=== PATIENT | male | born 1995 | race Caucasian/White ===

== ENCOUNTER 2023-10-26 14:43 | Emergency (ER) | payer OTHER, SELFPAY ==
[2023-10-26] VITALS (7 sets, daily range): BP systolic 105–118; BP diastolic 56–75; PULSE 55–90; RESP 16; TEMP 37.1; O2SAT 97–100; BMI 17.6
[2023-10-26 15:12] LABS: Add Manual Diff / Slide Review NO; Basophils Absolute Auto 100 /uL (0-100); Basophils Percent Auto 0.8 % (0-2); Eosinophils Absolute Auto 200 /uL (0-450); Eosinophils Percent Auto 2.2 % (2-4); Hematocrit 42.4 % (41-53); Hemoglobin 14.5 g/dL (13.5-17.5); Lymphocytes Absolute Auto 2500 /uL (1100-4500); Lymphocytes Percent Auto 32.4 % (25-40); Mean Corpuscular HGB Conc 34.2 % (30-36); Mean Corpuscular Hemoglobin 31.7 PG (26-34); Mean Corpuscular Volume 92.6 fL (80-100); Monocytes Absolute Auto 500 /uL (0-900); Monocytes Percent Auto 6.5 % (3-14); Neutrophils Absolute Auto 4400 /uL (1500-7000); Neutrophils Percent Auto 58.1 % (50-75); Platelet Count 191 X10^3/uL (150-400); Red Blood Cell Count 4.58 X10^6/uL (4.5-5.9); Red Cell Distribution Width 13.5 % (11.6-14.8); White Blood Cell Count 7.7 X10^3/uL (4.5-11.0)
[2023-10-26 15:24] LABS: Alanine Aminotransferase 16 IU/L (<50); Albumin 4.3 g/dL (3.5-5.0); Albumin Globulin Ratio 1.6 (1.0-2.8); Alkaline Phosphatase 62 U/L (38-126); Aspartate Aminotransferase 29 IU/L (17-59); BUN Creatinine Ratio 14.1 (6-22); Bilirubin Total 0.7 mg/dL (0.2-1.3); Blood Urea Nitrogen 12 mg/dL (9-20); Calcium 9.1 mg/dL (8.4-10.2); Carbon Dioxide 24 mmol/L (22-32); Chloride 106 mmol/L (98-107); Estimated Glomerular Filt Rate > 60 mL/min (>60); Globulin 2.7 g/dL (1.7-4.1); Glucose 109 mg/dL (70-100); HEMOLYSIS < 15 (0-50); Lipase 34 U/L (23-300); Potassium 3.6 mmol/L (3.4-5.1); Sodium 136 mmol/L (137-145)
--- NOTE | 2023-10-26 16:36 | DI.RAD.S_ITS ---
PROCEDURE: XR ABDOMEN MIN 2V INDICATIONS: abd pain TECHNIQUE: 2 views of the abdomen were acquired. COMPARISON: None. FINDINGS: Surgical changes and devices: None. Bowel: No pneumoperitoneum. The bowel gas pattern is normal. Soft tissues: No masses; visualized solid organ contours appear normal in size. No suspicious abdominal calcifications. Bones: No suspicious bony abnormalities. IMPRESSION: Non-obstructive bowel gas pattern. Approved by: Bennett Porter M.D. on 10/26/2023 at 16:06
--- NOTE | 2023-10-26 17:05 | PC.NURSE ---
Pt declines being on the monitor, extreme anxiety at baseline. Charge aware.
--- NOTE | 2023-10-26 17:46 | ED_ITS ---
HPI - Abdominal Pain General Chief Complaint: Abdominal Pain Stated Complaint: Chest Pain Time Seen by Provider: 10/26/23 17:46 Source: patient Mode of arrival: Ambulatory History of Present Illness HPI narrative: 28-year-old male complains of upper left abdominal and lower left chest discomfort last couple of days. He went to urgent care yesterday, they were going to labs but there labs were down, he left the urgent care, did not have evaluation did not present to another urgent care. He said he has had suspected ulcers before, no prior upper endoscopy. No black or red stools. No injury trauma new activities. He denies cough shortness of breath. No diarrhea. No painful urination. No skin rashes Related Data Previous Rx's Medication Instructions Recorded omeprazole 20 mg capsule,delayed 20 mg PO DAILY upper abdominal 10/26/23 release pain 30 days #30 caps Review of Systems Review of Systems Narrative: see HPI Patient History Social History Smoking Status: Current every day smoker Smoking Status: Current every day smoker tobacco type: vaping alcohol intake frequency: 0-2 drinks per day Substance Use Type: does not use Exam Narrative Exam Narrative: GENERAL: Well-developed patient, in mild distress. HEAD: Atraumatic. Normocephalic. EYES: Pupils equal round and reactive. Extraocular motions intact. No scleral icterus. No injection or drainage. ENT: Nose without bleeding, purulent drainage. Throat without erythema, tonsillar hypertrophy or exudate. Airway patent. NECK: Trachea midline. Non tender CARDIOVASCULAR: Regular rate and rhythm without murmurs, gallops, or rubs. RESPIRATORY: Clear to auscultation. Breath sounds equal bilaterally. No wheezes, rales, or rhonchi. GASTROINTESTINAL: Tenderness in the epigastrium, no guarding or rebound, nondistended, bowel tones unremarkable, no rushes or tinkles. No obvious ventral hernias EXTREMITIES: No edema or joint tenderness. BACK: Nontender without deformity or crepitance. No flank tenderness. NEURO: AOx3. Nonfocal gross motor SKIN: No rash or erythema of visible areas Initial Vital Signs Initial Vital Signs: Vital Signs Temperature 98.8 F 10/26/23 14:46 Pulse Rate 90 10/26/23 14:46 Respiratory Rate 16 10/26/23 14:46 Blood Pressure 118/75 10/26/23 14:46 Pulse Oximetry 97 10/26/23 14:46 Oxygen Delivery Method Room Air 10/26/23 14:46 Course Orders Ordered: ED Orders 10/26/23 15:00 Complete Blood Count AUTO DIFF Stat Comprehensive Metabolic Panel Stat D Dimer Stat Lipase Stat 10/26/23 16:36 XR abdomen min 2V Stat 10/26/23 18:09 XR chest 1V Stat Ondansetron HCl (Ondansetron 4 Mg/2 Ml Inj) 4 mg IV NOW PRN PRN Reason: Nausea And Vomiting Last Admin: 10/26/23 18:21 Dose: 4 mg Documented By: TELLO Ondansetron HCl (Ondansetron 4 Mg Odt) 4 mg PO NOW PRN PRN Reason: Nausea And Vomiting Discontinued Medications Ketorolac Tromethamine (Ketorolac 30 Mg/Ml Vial) 15 mg IV NOW ONE Stop: 10/26/23 18:12 Last Admin: 10/26/23 18:21 Dose: 15 mg Documented By: TELLO Morphine Sulfate (Morphine 4 Mg/Ml Inj) 4 mg IV NOW ONE Stop: 10/26/23 19:04 Last Admin: 10/26/23 20:13 Dose: 4 mg Documented By: JIM Pantoprazole Sodium (Pantoprazole 40 Mg Vial) 40 mg IV NOW ONE Stop: 10/26/23 19:04 Last Admin: 10/26/23 19:30 Dose: 40 mg Documented By: JIM Tramadol HCl (Tramadol 50 Mg Prepack) 1 bottle MISC DIRECTED ONE Stop: 10/26/23 19:11 Last Admin: 10/26/23 19:30 Dose: 1 bottle Documented By: JIM Vital Signs Vital signs: Vital Signs - 8 hr 10/26/23 14:46 10/26/23 18:11 10/26/23 18:12 Temperature 98.8 F Pulse Rate 90 73 71 Respiratory Rate 16 Blood Pressure 118/75 Pulse Oximetry 97 100 100 Oxygen Delivery Method Room Air 10/26/23 18:12 10/26/23 18:30 10/26/23 18:30 Temperature Pulse Rate 58 L Respiratory Rate Blood Pressure 110/74 118/70 Pulse Oximetry 99 Oxygen Delivery Method 10/26/23 19:00 10/26/23 19:00 10/26/23 19:30 Temperature Pulse Rate 59 L Respiratory Rate Blood Pressure 116/66 116/69 Pulse Oximetry 99 Oxygen Delivery Method 10/26/23 19:30 10/26/23 20:00 10/26/23 20:00 Temperature Pulse Rate 61 55 L Respiratory Rate 16 Blood Pressure 105/56 L Pulse Oximetry 99 99 Oxygen Delivery Method MDM - Abdominal Pain Lab Data Attestation: I reviewed the patient's lab results. 10/26/23 15:00 10/26/23 15:00 Labs: Lab Results 10/26/23 Range/Units 15:00 WBC 7.7 (4.5-11.0) X10^3/uL RBC 4.58 (4.5-5.9) X10^6/uL Hgb 14.5 (13.5-17.5) g/dL Hct 42.4 (41-53) % MCV 92.6 (80-100) fL MCH 31.7 (26-34) PG MCHC 34.2 (30-36) % RDW 13.5 (11.6-14.8) % Plt Count 191 (150-400) X10^3/uL Neut % (Auto) 58.1 (50-75) % Lymph % (Auto) 32.4 (25-40) % [place] % (Auto) 6.5 (3-14) % Eos % (Auto) 2.2 (2-4) % Baso % (Auto) 0.8 (0-2) % Neut # (Auto) 4400 (6083-9310) /uL Lymph # (Auto) 2500 (2844-6044) /uL [place] # (Auto) 500 (0-900) /uL Eos # (Auto) 200 (0-450) /uL Baso # (Auto) 100 (0-100) /uL D-Dimer < 215 (<500) ng/ml Sodium 136 L (137-145) mmol/L Potassium 3.6 (3.4-5.1) mmol/L Chloride 106 (98-107) mmol/L Carbon Dioxide 24 (22-32) mmol/L BUN 12 (9-20) mg/dL Creatinine 0.85 (0.66-1.25) mg/dL Estimated GFR > 60 (>60) mL/min BUN/Creatinine Ratio 14.1 (6-22) Glucose 109 H (70-100) mg/dL Calcium 9.1 (8.4-10.2) mg/dL Total Bilirubin 0.7 (0.2-1.3) mg/dL AST 29 (17-59) IU/L ALT 16 (<50) IU/L Alkaline Phosphatase 62 (38-126) U/L Total Protein 7.0 (6.3-8.2) g/dL Albumin 4.3 (3.5-5.0) g/dL Globulin 2.7 (1.7-4.1) g/dL Albumin/Globulin Ratio 1.6 (1.0-2.8) Lipase 34 (23-300) U/L Point of care testing: Urine Dip Bedside Urine Glucose Negative Bedside Urine Bilirubin - Negative Bedside Urine Ketone - Negative Urine Specific [place] 1.010 Bedside Urine Occult Blood - Negative Bedside Urine pH 70 Bedside Urine Protein - Negative Bedside Urine Urobilinogen - Negative Bedside Urine Nitrite - Negative Bedside Urine Leukocytes - Negative Esterase Imaging Data Chest x-ray: Radiologist's Impression: [address] [address] XRay Report Signed Patient: Adiel Singh MR#: [id number] : 1995 Acct:[id number] Age/Sex: 28 / M Date of Service: 10/26/23 Loc: ED Accession Number: [id number] Procedure: XR chest 1V Ordering Provider: Leonel Madrid MD PROCEDURE: XR CHEST 1V INDICATIONS: left chest pain TECHNIQUE: One view of the chest was acquired. COMPARISON: None. FINDINGS: Surgical changes and devices: None. Lungs and pleura: Lungs are clear. No pleural effusions or pneumothorax. Mediastinum: Mediastinal contours appear normal. Heart size is normal. Bones and chest wall: No suspicious bony lesions. Overlying soft tissues appear unremarkable. IMPRESSION: No acute cardiopulmonary abnormalities or focal consolidation. Dictated by: Endy Mchugh M.D. on 10/26/2023 at 18:27 Approved by: Endy Mchugh M.D. on 10/26/2023 at 18:27 Abdominal x-ray: Radiologist's Impression: [address] [address] XRay Report Signed Patient: Adiel Singh MR#: [id number] : 1995 Acct:[id number] Age/Sex: 28 / M Date of Service: 10/26/23 Loc: ED Accession Number: [id number] Procedure: XR abdomen min 2V Ordering Provider: Leonel Madrid MD PROCEDURE: XR ABDOMEN MIN 2V INDICATIONS: abd pain TECHNIQUE: 2 views of the abdomen were acquired. COMPARISON: None. FINDINGS: Surgical changes and devices: None. Bowel: No pneumoperitoneum. The bowel gas pattern is normal. Soft tissues: No masses; visualized solid organ contours appear normal in size. No suspicious abdominal calcifications. Bones: No suspicious bony abnormalities. IMPRESSION: Non-obstructive bowel gas pattern. Approved by: Bennett Porter M.D. on 10/26/2023 at 16:06 [facility] Narrative Medical decision making narrative: Epigastric pain, labs sent unremarkable, mild tenderness on exam, afebrile, sirs screen negative. DDx consider gastritis, gastric ulcer, duodenal ulcer, esophagitis, esophageal ulcer, pancreatitis, cholecystitis, choledocholithiasis, hernia, colitis, diverticulitis, abdominal strain, other. Chest x-ray and abdominal x-ray series unremarkable. Labs including white blood cell count, hemoglobin, LFTs, lipase, D-dimer negative. We did discussed advanced imaging that might include CT scan abdomen and pelvis imaging, he declined this for now. Discharge on antacid regimen, prescription sent for omeprazole to his pharmacy. Consider upper endoscopy for persistent or recurrent symptoms. IV Protonix prior to discharge. Advised to avoid aspirin, Motrin, alcohol, carbonated beverages. Return precautions discussed Discharge Plan Departure Patient Disposition: Home Clinical Impression: Epigastric abdominal pain Instructions: DI for Epigastric Pain Activity Restrictions/Additional Instructions: Upper epigastric area abdominal discomfort, with some tenderness on exam, no fever, unremarkable vital signs, lab testing also unremarkable. Pain medications given, antacids given. Consider Tylenol as needed for pain control. Perhaps avoid Motrin for now. Consider antacid, omeprazole available [id number] but sent to your pharmacy to fill for now. We discussed advanced imaging of the abdomen, such as CT scanning, declined for now. Avoid use of aspirin and alcohol. Consider recheck with your regular doctor in the next few days to reassess symptoms. If symptoms not improving on antacid therapy, or if they recur after a few weeks of antacid therapy, would consider upper endoscopy evaluation of this stomach in the duodenal in the esophagus. Return earlier to this/nearest emergency department for any change worsening symptoms or any concerns prior Prescriptions: New omeprazole 20 mg capsule,delayed release(DR/EC) 20 mg PO DAILY 30 Days Qty: 30 0RF Stand Alone Forms: Patient Portal/API
--- NOTE | 2023-10-26 18:09 | DI.RAD.S_ITS ---
PROCEDURE: XR CHEST 1V INDICATIONS: left chest pain TECHNIQUE: One view of the chest was acquired. COMPARISON: None. FINDINGS: Surgical changes and devices: None. Lungs and pleura: Lungs are clear. No pleural effusions or pneumothorax. Mediastinum: Mediastinal contours appear normal. Heart size is normal. Bones and chest wall: No suspicious bony lesions. Overlying soft tissues appear unremarkable. IMPRESSION: No acute cardiopulmonary abnormalities or focal consolidation. Dictated by: Endy Mchugh M.D. on 10/26/2023 at 18:27 Approved by: Endy Mchugh M.D. on 10/26/2023 at 18:27
[2023-10-26] MEDS: ONDANSETRON 4 MG/2 ML INJ IV (18:21)
[2023-10-26] MEDS: KETOROLAC 30 MG/ML VIAL 15 MG IV (18:21)
[2023-10-26 18:38] LABS: D Dimer < 215 ng/ml (<500)
[2023-10-26] MEDS: PANTOPRAZOLE 40 MG VIAL IV (19:30)
[2023-10-26] MEDS: TRAMADOL 50 MG PREPACK 1 BOTTLE MISC (19:30)
--- NOTE | 2023-10-26 19:30 | PC.NURSE ---
pt calling ride, other medications given morphine to be given when ride arrives
[2023-10-26] MEDS: MORPHINE 4 MG/ML INJ IV (20:13)
== END 2023-10-26 20:27 | disposition home or self-care (01) ==
PROVIDERS: Emergency Provider Emergency Medicine
DX: R10.13 Epigastric pain (principal)
CPT/HCPCS: 36415; 71045; 74019; 80053; 81003; 83690; 85025; 85379; 96374; 96375; 99284; J1885; J2270; J2405; J2470